=== PATIENT | male | born 2005 | race African-American/Black ===

== ENCOUNTER 2025-05-17 20:19 | Emergency (ER) | payer OTHER ==
[~2025-05-17] VITALS: Ht 165.1 cm; Wt 79.2 kg
[2025-05-17 23:16] VITALS: TEMP 98.3
[2025-05-18 01:27] VITALS: BP 129/75; O2SAT 100
== END 2025-05-18 01:29 | disposition home or self-care (01) ==
LOC: M ED 20:19
DX: S92.254A Nondisplaced fracture of navicular [scaphoid] of right foot, initial encounter for closed fracture (principal); M25.471 Effusion, right ankle; X50.0XXA Overexertion from strenuous movement or load, initial encounter; Y92.9 Unspecified place or not applicable; Y93.67 Activity, basketball; Y99.9 Unspecified external cause status